=== PATIENT | male | born 1995 ===

== ENCOUNTER 2018-02-23 19:15 | Inpatient (IN) | payer BC ==
[~2018-02-23] VITALS: Ht 188 cm; Wt 77.1 kg
--- NOTE | 2018-02-23 19:30 | NUR ---
To room 1B. friend s at bedside. Patient AAO, with multiple skin sores to arms.
[2018-02-23] MEDS ORDERED: TRAZ150T75 PO (19:42)
--- NOTE | 2018-02-23 19:45 | NUR ---
Seen and evaluated by Dr. Batista.
[2018-02-23] MEDS ORDERED: VANCOMYCIN IV 1,000 MG in IV DEXTROSE 5% 250 ML IV ONE (20:00)
[2018-02-23] MEDS ORDERED: IV NORMAL SALINE 1000 ML BAG IV ONE (20:00)
[2018-02-23] MEDS ORDERED: KETOROLAC TROMETHAMINE 30 MG INJ IVP ONE (20:00)
[2018-02-23 20:06] LABS: BASOPHILS # (AUTO) 0.1 K/uL (0.0-8.0); BASOPHILS % (AUTO) 0.3 % (0.0-2.0); EOSINOPHILS # (AUTO) 0.1 K/uL (0.0-0.7); EOSINOPHILS % (AUTO) 0.3 % (0.0-7.0); HEMATOCRIT 39.4 % (36.7-47.1); HEMOGLOBIN 13.4 g/dL (12.5-16.3); LYMPHOCYTES # (AUTO) 0.8 K/uL (20.0-40.0); LYMPHOCYTES % (AUTO) 2.6 % (20.5-51.5); MEAN CORPUSCULAR HEMOGLOBIN 28.6 uug (23.8-33.4); MEAN CORPUSCULAR HGB CONC 34 g/dL (32.5-36.3); MEAN CORPUSCULAR VOLUME 84.3 fL (73.0-96.2); MONOCYTES # (AUTO) 0.7 K/uL (2.0-10.0); MONOCYTES % (AUTO) 2.4 % (0.0-11.0); NEUTROPHILS % (AUTO) 94.4 % (38.5-71.5); PLATELET COUNT (AUTO) 277 K/uL (152-348); RED BLOOD CELL COUNT(AUTO) 4.68 MIL/uL (4.06-5.63)
[2018-02-23 20:19] LABS: CREATININE 2.4 mg/dL (0.6-1.3); POTASSIUM 4.2 mmol/L (3.5-5.1)
[2018-02-23 20:26] LABS: BILIRUBIN,DIRECT 2.8 mg/dL (0.0-0.2); BILIRUBIN,TOTAL 4.3 mg/dL (0.2-1.0); TOTAL PROTEIN, SERUM 7.1 g/dL (6.4-8.2); WHITE BLOOD COUNT (AUTO) 31.8 K/uL (3.6-10.2)
[2018-02-23 20:27] LABS: BAND % (MANUAL) 8 % (0-10); LYMPHOCYTES % (MANUAL) 4 % (20-40); MONOCYTES % (MANUAL) 4 % (2-10); NEUTROPHILS % (MANUAL) 84 % (42-75)
[2018-02-23] MEDS ORDERED: VANCOMYCIN IV 200 ML ONE (20:37)
--- NOTE | 2018-02-23 21:05 | NUR ---
Patient's girlfriend at bedside.
--- NOTE | 2018-02-23 22:01 | NUR ---
Belonging list completed.
--- NOTE | 2018-02-23 22:05 | NUR ---
Dr. Batista spoke to Dr. Morrow re: patient's admission. Will admit to [facility].
[2018-02-23] MEDS ORDERED: PIPERACILLIN/TAZOBACTAM/D5W 2.25 G in PREMIXED 1 EACH IV STA (22:07)
[2018-02-23 22:08] LABS: *BLOOD, URINE Trace-intact (NEGATIVE); *CLARITY,URINE SLIGHTLY CLOUDY (CLEAR); *COLOR,URINE DARK YELLOW (YELLOW); *KETONES,URINE NEGATIVE (NEGATIVE); *PROTEIN,URINE 1+ (NEGATIVE); LEUKOCYTE ESTERASE ,URINE NEGATIVE (NEGATIVE); NITRITE, URINE NEGATIVE (NEGATIVE); UGLUCOSE NEGATIVE (NEGATIVE)
[2018-02-23 22:09] LABS: *BILIRUBIN,URIN 2+ (NEGATIVE)
[2018-02-23] MEDS ORDERED: PIPERACILLIN/TAZOBACTAM/D5W 0 ML ONE (22:16)
[2018-02-23 22:30] LABS: BACTERIA,URINE RARE /HPF (NONE SEEN); RBC,URINE 0-3 /HPF (0-3); SQUAMOUS EPITHELIAL CELL,UR FEW /HPF (NONE SEEN)
--- NOTE | 2018-02-23 22:30 | NUR ---
Report given to Marcela BAIRES. Photos of multiple sores taken.
--- NOTE | 2018-02-23 22:58 | NUR ---
Pt. admitted to Med Surg, under care of Dr. Morrow.
[2018-02-23 23:05] VITALS: BP 91/41
[2018-02-23] MEDS ORDERED: MORPHINE SULFATE 2 MG/1 ML DISP.SYRIN IV PRN (23:15)
[2018-02-23] MEDS ORDERED: HYDROXYZINE PAMOATE 25 MG CAPSULE PO PRN (23:15)
[2018-02-23] MEDS ORDERED: ONDANSETRON 4 MG/2 ML VIAL IV PRN (23:15)
[2018-02-23] MEDS ORDERED: ACETAMINOPHEN 325 MG TABLET PO PRN (23:15)
[2018-02-23] MEDS ORDERED: LORAZEPAM 2 MG/1 ML VIAL IV PRN (23:15)
[2018-02-23] MEDS: IV NS 1000 ML 1,000 ML IV PRN (23:44)
[2018-02-23] MEDS ORDERED: PIPERACILLIN/TAZOBACTAM/D5W 100 ML ONE (23:53)
[2018-02-24] MEDS ORDERED: PIPERACILLIN/TAZOBACTAM/D5W 0 ML ONE (00:01)
[2018-02-24] MEDS: TRAZODONE 50 MG TABLET PO SCH ×2 (00:02→21:08)
[2018-02-24 01:00] VITALS: BP_SYST 103; BP_SYST 78; BP_SYST 98; BP_DIAS 34; BP_DIAS 35; BP_DIAS 42
--- NOTE | 2018-02-24 01:05 | NUR ---
PATIENT WITH LOW BP, ORTHOSTATIC BP DONE. PATIENT IS ASYMPTOMATIC DENIES DIZZINESS. DNP PHOEBE AWARE NEW ORDERS FOR NS BOLUS GIVEN. WILL CONTINUE TO MONITOR PATIENT
[2018-02-24] MEDS ORDERED: IV NS 1000 ML 1,000 ML IV ONE (03:15)
[2018-02-24 04:00] VITALS: BP_SYST 101; BP_SYST 91; BP_DIAS 33; BP_DIAS 55
[2018-02-24] MEDS: PANTOPRAZOLE SODIUM 40 MG TABLET.DR PO SCH (06:04)
[2018-02-24] MEDS: PIPERACILLIN/TAZOBACTAM/D5W 2.25 G in PREMIXED 1 EACH IV SCH ×4 (06:04→23:22)
--- NOTE | 2018-02-24 06:37 | NUR ---
PATIENT SLEPT WELL ON THIS SHIFT. DENIES PAIN OR ANY DISTRESS. NO FEVER AT PRESENT. PATIENT IS A LITTLE GROGGY AND C/O OF BEING TOO TIRED SAFETY MEASURES ENFORCED CALL LIGHT LEFT WITHIN PATIENT'S REACH. NO FURTHER CHANGES IN STATUS
[2018-02-24 07:35] LABS: BASOPHILS % (AUTO) 0.2 % (0.0-2.0); EOSINOPHILS % (AUTO) 0.2 % (0.0-7.0); HEMATOCRIT 33.6 % (36.7-47.1); HEMOGLOBIN 11.5 g/dL (12.5-16.3); LYMPHOCYTES # (AUTO) 1.4 K/uL (20.0-40.0); MEAN CORPUSCULAR HEMOGLOBIN 28.4 uug (23.8-33.4); MEAN CORPUSCULAR HGB CONC 34 g/dL (32.5-36.3); MEAN CORPUSCULAR VOLUME 83.2 fL (73.0-96.2); MONOCYTES # (AUTO) 0.7 K/uL (2.0-10.0); MONOCYTES % (AUTO) 3.1 % (0.0-11.0); NEUTROPHILS # (AUTO) 20.7 K/uL (1.8-8.9); NEUTROPHILS % (AUTO) 90.5 % (38.5-71.5); PLATELET COUNT (AUTO) 238 K/uL (152-348); RED BLOOD CELL COUNT(AUTO) 4.04 MIL/uL (4.06-5.63); WHITE BLOOD COUNT (AUTO) 22.9 K/uL (3.6-10.2)
[2018-02-24 07:53] LABS: CREATININE 1.8 mg/dL (0.6-1.3); MAGNESIUM 2.1 mg/dL (1.8-2.4); PHOSPHOROUS 2.7 mg/dL (2.5-4.9); TOTAL PROTEIN, SERUM 5.7 g/dL (6.4-8.2)
[2018-02-24 09:48] LABS: BAND % (MANUAL) 7 % (0-10); LYMPHOCYTES % (MANUAL) 6 % (20-40); MONOCYTES % (MANUAL) 3 % (2-10); NEUTROPHILS % (MANUAL) 84 % (42-75)
[2018-02-24] MEDS ORDERED: MORPHINE SULFATE 4 MG/1 ML DISP.SYRIN IV PRN (10:00)
[2018-02-24] MEDS: IV NS 1000 ML 1,000 ML IV PRN (11:00)
[2018-02-24 11:05] VITALS: BP 105/47
[2018-02-24] MEDS ORDERED: POTASSIUM CHLORIDE 20 MEQ TAB.PRT.SR PO ONE (11:30)
--- NOTE | 2018-02-24 12:31 | NUR ---
WOUND CARE CONSULT: PT PRESENTS WITH DRY SCABS TO FACE, NECK, UPPER CHEST AND ARMS WITH FEW DRY SCABS TO LEGS, PRESENT ON ADMISSION. RT ARM NOTED TO BE SWOLLEN. RECOMMEND ELEVATE RT ARM. DEFER TO MD FOR DRY SCABS. NO DRAINAGE NOTED. WILL SEE PRN. PT INDEPENDENT WITH BED MOBILITY AND CONTINENT. CURRENT LUCIO SCORE IS 21.
--- NOTE | 2018-02-24 13:46 | NUR ---
Clinical pharmacy note-Vancomycin dosing per pharmacy Subjective; To start Vancomycin dosing on this 22 year old patient for cellulitis(injection site redness/swelling). Also on Zosyn. Objective: BUN 45/ Scr 1.8 WBC 22.9 Temp 97.8 Ht 187.96cm Wt 77.111kg Vancomycin random :8.5 on am labs Assessment/Plan: Patient had Vancomycin 1 gram in ER last night at 2032. Since renal function is unstable(1.8 vs 2.4), will start Vancomycin dosing by fall-off level for now. Vancomycin 1250mg IV x1 is scheduled to give today at 1500. Will check random in the morning for further dosing. Will monitor daily.
[2018-02-24] MEDS ORDERED: VANCOMYCIN IV 1,250 MG in IV DEXTROSE 5% 500 ML IV ONE (15:00)
[2018-02-24 15:32] VITALS: BP 97/40
--- NOTE | 2018-02-24 18:00 | NUR ---
PATIENT ALERT, IN NO DISTRESS. IV ANTIBIOTICS ADMINISTERED ORDERED, NO S/S OF ADVERSE REACTION NOTED. IVF INFUSING, NO INFILTRATION NOTED. RIGHT ARM ELEVATED. VS STABLE, AFEBRILE. SAFETY MEASURES IN PLACE.
--- NOTE | 2018-02-24 18:28 | NUR ---
FRIENDS AT BEDSIDE
--- NOTE | 2018-02-24 19:20 | NUR ---
RECEIVED PT AWAKE, ALERT, AND ORIENTEDX4. VISITORS AT BEDSIDE. PT SHOWS NO SIGNS OF DISTRESS. IV INTACT AND PATENT. CALL LIGHT WITHIN REACH. BED ALARM ON , LOW POSITION AND SIDE RAILS UPX2. WILL CONTINUE TO MONITOR.
[2018-02-24 19:40] VITALS: BP 93/29
[2018-02-24] MEDS: LACTOBACILLUS RHAMNOSUS GG 1 EACH CAPSULE PO SCH (21:07)
[2018-02-25 03:47] VITALS: BP 102/48
[2018-02-25] MEDS: PIPERACILLIN/TAZOBACTAM/D5W 2.25 G in PREMIXED 1 EACH IV SCH ×3 (05:04→18:50)
[2018-02-25] MEDS: IV NS 1000 ML 1,000 ML IV PRN (05:09)
[2018-02-25 06:05] LABS: BASOPHILS # (AUTO) 0.1 K/uL (0.0-8.0); BASOPHILS % (AUTO) 0.8 % (0.0-2.0); EOSINOPHILS # (AUTO) 0.1 K/uL (0.0-0.7); EOSINOPHILS % (AUTO) 0.7 % (0.0-7.0); HEMATOCRIT 32.7 % (36.7-47.1); HEMOGLOBIN 11.3 g/dL (12.5-16.3); LYMPHOCYTES % (AUTO) 15.3 % (20.5-51.5); MEAN CORPUSCULAR HEMOGLOBIN 29.2 uug (23.8-33.4); MEAN CORPUSCULAR HGB CONC 35 g/dL (32.5-36.3); MEAN CORPUSCULAR VOLUME 84.7 fL (73.0-96.2); MONOCYTES # (AUTO) 0.6 K/uL (2.0-10.0); MONOCYTES % (AUTO) 4.8 % (0.0-11.0); NEUTROPHILS # (AUTO) 10.3 K/uL (1.8-8.9); NEUTROPHILS % (AUTO) 78.4 % (38.5-71.5); PLATELET COUNT (AUTO) 218 K/uL (152-348); RED BLOOD CELL COUNT(AUTO) 3.86 MIL/uL (4.06-5.63); WHITE BLOOD COUNT (AUTO) 13.2 K/uL (3.6-10.2)
[2018-02-25] MEDS: PANTOPRAZOLE SODIUM 40 MG TABLET.DR PO SCH (06:12)
--- NOTE | 2018-02-25 06:15 | NUR ---
PT SLEPT THROUGHOUT THE SHIFT. PT SHOWS NO SIGNS OF DISTRESS.PT STABLE. PT IV INTACT AND PATENT. PRESCRIBED MEDICATION GIVEN AND PT TOLERATED IT WELL. CALL LIGHT WITHIN REACH. SAFETY AND COMFORT PROVIDED. ALL NEEDS ARE MET. WILL ENDORSE ACCORDINGLY TO DAYSHIFT NURSE.
[2018-02-25 06:31] LABS: BILIRUBIN,TOTAL 0.9 mg/dL (0.2-1.0); CREATININE 1.1 mg/dL (0.6-1.3); MAGNESIUM 1.8 mg/dL (1.8-2.4); PHOSPHOROUS 2.5 mg/dL (2.5-4.9); TOTAL PROTEIN, SERUM 5.7 g/dL (6.4-8.2); VANCOMYCIN,RANDOM 6.8 ug/mL (18.0-26.0)
--- NOTE | 2018-02-25 07:35 | NUR ---
PATIENT RESTING COMFORTABLY IN BED AT THIS TIME. IVF RUNNING. ABX WILL BE ADMINISTERED PER MD ORDERS. NO SIGNS OF DISTRESS, STABLE CONDITION. AMBULATORY. A/OX4. WOUND/SKIN CARE WILL BE PROVIDED. CALL LIGHT WITHIN REACH.
[2018-02-25] MEDS: VANCOMYCIN IV 1,250 MG in IV DEXTROSE 5% 500 ML IV SCH ×2 (08:27→19:32)
[2018-02-25] MEDS: LACTOBACILLUS RHAMNOSUS GG 1 EACH CAPSULE PO SCH ×2 (08:27→22:01)
--- NOTE | 2018-02-25 10:24 | NUR ---
Clinical pharmacy note-Vancomycin dosing per pharmacy Subjective; To continue Vancomycin dosing on this 22 year old patient for cellulitis(injection site redness/swelling). Also on Zosyn. Objective: BUN 24/ Scr 1.1 (baseline 2.4) WBC 13.2 Temp 97.6 Ht 187.96cm Wt 77.111kg Vancomycin random : 6.8 with am labs Assessment/Plan: As patient's renal function as markedly improved, will start regimen of 1250mg vanco q10hr for estimated trough of 15.77, first dose today at 0900. Trough ordered before 4th scheduled dose, due tomorrow at 1430. Will check level at that time and adjust as needed. If renal function were to change, will adjust as well. Will follow
[2018-02-25 11:32] VITALS: BP 125/66
[2018-02-25 15:04] VITALS: BP 124/76
[2018-02-25 19:00] VITALS: BP 106/50
--- NOTE | 2018-02-25 19:55 | NUR ---
Pt observed to be ambulating in room, denies discomfort at this time. IV abx infusing as ordered. Pt made aware of plan of care. Safe environment implemented. Call light within reach. Will continue to monitor closely.
[2018-02-25] MEDS: TRAZODONE 50 MG TABLET PO SCH (22:00)
[2018-02-25] MEDS: CEFTRIAXONE 1 G in IV DEXTROSE 5% 50 ML IV SCH (22:01)
[2018-02-26 04:00] VITALS: BP 109/59
[2018-02-26 04:10] LABS: HEPATITIS B SURFACE AB Reactive (.); HEPATITIS B SURFACE AG Negative (Negative)
[2018-02-26] MEDS: VANCOMYCIN IV 1,250 MG in IV DEXTROSE 5% 500 ML IV SCH ×2 (05:06→15:56)
[2018-02-26 05:42] LABS: BASOPHILS # (AUTO) 0.1 K/uL (0.0-8.0); BASOPHILS % (AUTO) 1.2 % (0.0-2.0); EOSINOPHILS # (AUTO) 0.1 K/uL (0.0-0.7); HEMATOCRIT 34.3 % (36.7-47.1); HEMOGLOBIN 11.9 g/dL (12.5-16.3); LYMPHOCYTES # (AUTO) 2.8 K/uL (20.0-40.0); LYMPHOCYTES % (AUTO) 26.2 % (20.5-51.5); MEAN CORPUSCULAR HEMOGLOBIN 29.1 uug (23.8-33.4); MEAN CORPUSCULAR HGB CONC 35 g/dL (32.5-36.3); MEAN CORPUSCULAR VOLUME 84.4 fL (73.0-96.2); MONOCYTES # (AUTO) 0.7 K/uL (2.0-10.0); MONOCYTES % (AUTO) 6.4 % (0.0-11.0); NEUTROPHILS # (AUTO) 6.9 K/uL (1.8-8.9); NEUTROPHILS % (AUTO) 65.2 % (38.5-71.5); PLATELET COUNT (AUTO) 243 K/uL (152-348); RED BLOOD CELL COUNT(AUTO) 4.07 MIL/uL (4.06-5.63); WHITE BLOOD COUNT (AUTO) 10.6 K/uL (3.6-10.2)
[2018-02-26 05:59] LABS: BILIRUBIN,TOTAL 0.5 mg/dL (0.2-1.0); CREATININE 0.9 mg/dL (0.6-1.3); MAGNESIUM 1.5 mg/dL (1.8-2.4); PHOSPHOROUS 4.1 mg/dL (2.5-4.9); POTASSIUM 4.1 mmol/L (3.5-5.1); TOTAL PROTEIN, SERUM 5.8 g/dL (6.4-8.2)
--- NOTE | 2018-02-26 06:00 | NUR ---
Stable condition, all needs attended to. Safe environment implemented at all times. Call light within reach.
[2018-02-26] MEDS: PANTOPRAZOLE SODIUM 40 MG TABLET.DR PO SCH (06:31)
[2018-02-26] MEDS: LACTOBACILLUS RHAMNOSUS GG 1 EACH CAPSULE PO SCH ×2 (09:01→20:59)
[2018-02-26] MEDS: IV NS 1000 ML 1,000 ML IV PRN (09:03)
[2018-02-26] MEDS ORDERED: MAGNESIUM OXIDE 400 MG TABLET PO ONE (10:30)
[2018-02-26 11:35] VITALS: BP 119/67
--- NOTE | 2018-02-26 15:58 | NUR ---
Clinical pharmacy note-Vancomycin dosing per pharmacy Subjective; To continue Vancomycin dosing on this 22 year old patient for cellulitis(injection site redness/swelling). Objective: BUN 18/ Scr 0.9 WBC 10.6 Temp 98.2 Ht 187.96cm Wt 77.111kg Vancomycin trough level: 14.6 Assessment/Plan: Since vanco trough level is 14.6, will continue same dose of vanco 1250mg IVPB q10hr for today. Will monitor renal function & adjust as well. Will follow
[2018-02-26 16:02] VITALS: BP 126/63
--- NOTE | 2018-02-26 18:25 | NUR ---
PATIENT ALERT, IN NO DISTRESS. IV ANTIBIOTIC ADMINISTERED ORDERED, NO ADVERSE REACTION NOTED. IVF INFUSING. FRIEND AT BEDSIDE.
[2018-02-26 19:40] VITALS: BP 119/55
--- NOTE | 2018-02-26 20:00 | NUR ---
PATIENT IS AWAKE IN BED, AAOX4 DENIES PAIN OR ANY DISTRESS ON ASSESSMENT. AFEBRILE AT THIS TIME. SAFETY AND COMFORT MEASURES IN PLACE. WILL CONTINUE TO MONITOR PATIENT
[2018-02-26] MEDS: CEFTRIAXONE 1 G in IV DEXTROSE 5% 50 ML IV SCH (20:15)
[2018-02-26] MEDS: TRAZODONE 50 MG TABLET PO SCH (20:59)
[2018-02-27] MEDS: VANCOMYCIN IV 1,250 MG in IV DEXTROSE 5% 500 ML IV SCH (01:00)
[2018-02-27 03:52] VITALS: BP 129/65
[2018-02-27] MEDS: PANTOPRAZOLE SODIUM 40 MG TABLET.DR PO SCH (06:04)
[2018-02-27] MEDS: IV NS 1000 ML 1,000 ML IV PRN (06:04)
--- NOTE | 2018-02-27 06:50 | NUR ---
PATIENT SLEPT WELL ON THIS SHIFT. DENIED PAIN OR ANY DISTRESS ON THIS. VSS WNL, NO FEVER ON THIS SHIFT. NO FURTHER CHANGES IN STATUS.
[2018-02-27] MEDS: LACTOBACILLUS RHAMNOSUS GG 1 EACH CAPSULE PO SCH ×2 (08:11→21:11)
[2018-02-27] MEDS: DOXYCYCLINE HYCLATE 100 MG TABLET PO SCH ×2 (08:11→21:11)
[2018-02-27 11:06] VITALS: BP 113/53
[2018-02-27 15:08] VITALS: BP 108/56
--- NOTE | 2018-02-27 18:21 | NUR ---
PT ALERT, NO SIGNIFICANT CHANGE OF CONDITION THROUGHOUT THE SHIFT. VS STABLE, AFEBRILE. WILL CONTINUE TO MONITOR.
[2018-02-27 19:41] VITALS: BP 115/61
--- NOTE | 2018-02-27 19:56 | NUR ---
PATIENT IS AWAKE IN BED, AAOX4. DENIES PAIN OR ANY DISTRESS ON ASSESSMENT. AFEBRILE AT THIS TIME. SAFETY MEASURES IN PLACE WILL CONTINUE TO MONITOR PATIENT.
[2018-02-27] MEDS: TRAZODONE 50 MG TABLET PO SCH (21:11)
[2018-02-28 03:48] VITALS: BP 122/64
[2018-02-28] MEDS: IV NS 1000 ML 1,000 ML IV PRN (06:13)
[2018-02-28] MEDS: PANTOPRAZOLE SODIUM 40 MG TABLET.DR PO SCH (06:13)
--- NOTE | 2018-02-28 06:50 | NUR ---
PATIENT SLEPT WELL ON THIS SHIFT. NO C/O OF PAIN OR ACUTE DISTRESS ON THIS SHIFT. NO FEVER ON THIS SHIFT, VSS WNL. NO SIGNIFICANT CHANGES IN STATUS
[2018-02-28] MEDS: DOXYCYCLINE HYCLATE 100 MG TABLET PO SCH ×2 (08:32→20:19)
[2018-02-28] MEDS: LACTOBACILLUS RHAMNOSUS GG 1 EACH CAPSULE PO SCH ×2 (08:32→20:19)
[2018-02-28 11:44] VITALS: BP 166/88
[2018-02-28 15:18] VITALS: BP 124/71
[2018-02-28 19:00] VITALS: BP 129/64
[2018-02-28] MEDS ORDERED: DOXY100T2 PO (19:29)
[2018-02-28] MEDS ORDERED: LACT1CAP57 PO (19:29)
--- NOTE | 2018-02-28 20:00 | NUR ---
RECEIVED ORDER FOR PATIENT TO BE DISCHARGED. PATIENT WILL BE DISCHARGED AND THEN HIS GIRLFRIEND WILL TAKE HIM TO [facility] TO ADMIT HIMSELF INTO A DRUG REHABILITATION. PATIENT IS A/O X4. DENIES PAIN OR DISCOMFORT. VS WNL. GIRLFRIEND AT BEDSIDE. CALL LIGHT IN REACH. ALL NEEDS ATTENDED. WILL CONTINUE TO MONITOR AND ASSESS.
[2018-02-28] MEDS: TRAZODONE 50 MG TABLET PO SCH (20:18)
--- NOTE | 2018-02-28 20:20 | NUR ---
PATIENT GIVEN DISCHARGE INSTRUCTIONS AND RX. VERBALIZED UNDERSTANDING. PATIENT REFUSED FOR PICTURES TO BE TAKEN UPON DISCHARGE. [employer] NOTIFIED. VSS. ALL NEEDS ATTENDED. HEPLOCK REMOVED. NO BLEEDING NOTED.
--- NOTE | 2018-02-28 20:30 | NUR ---
PATIENT LEFT FACILITY WITH GIRLFRIEND AT SIDE. PATIENT LEFT FACILITY IN STABLE CONDITION. ALL NEEDS ATTENDED.
== END 2018-02-28 20:30 | DRG 871 ==
LOC: ER 19:17 → MED 22:52
PROVIDERS: ADMIT Internal Medicine; ATTEND Internal Medicine
DX: A41.9 Sepsis, unspecified organism (principal); E43 Unspecified severe protein-calorie malnutrition; N17.0 Acute kidney failure with tubular necrosis; L03.113 Cellulitis of right upper limb; F11.23 Opioid dependence with withdrawal; S50.311A Abrasion of right elbow, initial encounter; S00.81XA Abrasion of other part of head, initial encounter; S20.319A Abrasion of unspecified front wall of thorax, initial encounter; L08.9 Local infection of the skin and subcutaneous tissue, unspecified; Y33.XXXA Other specified events, undetermined intent, initial encounter; Y92.89 Other specified places as the place of occurrence of the external cause; F15.10 Other stimulant abuse, uncomplicated; B19.20 Unspecified viral hepatitis C without hepatic coma; R76.0 Raised antibody titer; Z68.21 Body mass index [BMI] 21.0-21.9, adult; E87.6 Hypokalemia; Z72.0 Tobacco use; G40.909 Epilepsy, unspecified, not intractable, without status epilepticus; R16.2 Hepatomegaly with splenomegaly, not elsewhere classified; I80.9 Phlebitis and thrombophlebitis of unspecified site; F42.4 Excoriation (skin-picking) disorder
CPT/HCPCS: 36415; 71045; 73080; 76700; 83605; 83735; 83970; 84100; 85025; 85730; 86706; 86803; 87040; 87340; 87806; A4663; J0696; J2270; J2543; J3370; J7030; J7060